=== PATIENT | male | born 1955 | race Caucasian/White ===

== ENCOUNTER 2023-11-15 09:34 | Outpatient (CLI) | payer MEDICARE | END 2023-11-15 09:35 | disposition home or self-care (01) | LOC: CSHULT 09:34 | PROVIDERS: ATTEND Nurse Practitioner | DX: Z13.6 Encounter for screening for cardiovascular disorders (principal) | CPT/HCPCS: 76706 ==

== ENCOUNTER 2023-11-15 09:45 | Outpatient (CLI) | payer OTHER | END 2023-11-15 09:46 | disposition home or self-care (01) | LOC: CSHCT 09:45 | PROVIDERS: ATTEND Nurse Practitioner | DX: Z00.00 Encounter for general adult medical examination without abnormal findings (principal); I25.10 Atherosclerotic heart disease of native coronary artery without angina pectoris; I25.84 Coronary atherosclerosis due to calcified coronary lesion | CPT/HCPCS: 75571 ==

== ENCOUNTER 2023-11-30 08:40 | Emergency (ER) | payer MEDICARE | END 2023-11-30 09:30 | disposition home or self-care (01) | LOC: CSHERS 08:40 | DX: R33.9 Retention of urine, unspecified (principal); B02.9 Zoster without complications; E78.5 Hyperlipidemia, unspecified; G47.30 Sleep apnea, unspecified; Z55.6 Problems related to health literacy | CPT/HCPCS: 51702; 99283 ==